=== PATIENT | male | born 1980 | race Two or more races ===

== ENCOUNTER 2018-07-26 09:00 | Emergency (ER) | payer SELFPAY ==
[~2018-07-26] VITALS: Ht 167.6 cm; Wt 81.6 kg
[2018-07-26 09:00] VITALS: BP 148/90
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
[2018-07-26] MEDS ORDERED: Methocarbamol 750mg tab ORAL ONE (09:30)
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
[2018-07-26] MEDS ORDERED: Augmentin 875mg Tab ORAL ONE (11:00)
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
[2018-07-26] MEDS ORDERED: AUGMENTIN 875-1 EAC1 ORAL (11:56)
[2018-07-26] MEDS ORDERED: IBUPROFEN600 MG ORAL (11:56)
[2018-07-26 12:05] VITALS: BP 136/83
--- NOTE | 2018-07-27 09:12 | Diagnostic Imaging Report ---
Indication: Right hand pain Findings: 3 views of the right hand were obtained. Normal bony mineralization and alignment are demonstrated. No acute fractures, erosions, or periosteal reaction are seen. Soft tissues are unremarkable. Impression: No acute findings.
--- NOTE | 2018-07-27 10:04 | Diagnostic Imaging Report ---
Indication: Dyspnea Comparison: None A single view chest radiograph was obtained. Findings: Cardiomediastinal appearance is within normal limits for age. The lungs are clear. Pulmonary vascularity is appropriate. The diaphragmatic contour is smooth and costophrenic angles are sharp. No pleural effusions are identified. The bones are unremarkable. Impression: No acute findings
== END 2018-07-26 12:09 | disposition home or self-care (01) ==
LOC: EDBD 09:00 → EMR 10:29
DX: S01.511A Laceration without foreign body of lip, initial encounter (principal); R22.31 Localized swelling, mass and lump, right upper limb; Y04.2XXA Assault by strike against or bumped into by another person, initial encounter
CPT/HCPCS: 70450; 70486; 71045; 99284